=== PATIENT | male | born 1980 ===

== ENCOUNTER 2018-09-26 21:28 | Emergency (ER) | payer SELFPAY ==
[2018-09-26 21:31] VITALS: BMI 25.0
[2018-09-26 21:37] VITALS: RESP 20
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
[2018-09-26 22:34] VITALS: BP 149/70; PULSE 81; TEMP 98
[2018-09-27 16:21] VITALS: O2SAT 100
== END 2018-09-26 22:34 | disposition home or self-care (01) ==
LOC: C.ER 21:28
DX: Z04.1 Encounter for examination and observation following transport accident (principal)